=== PATIENT | male | born 1980 | race Two or more races ===

== ENCOUNTER 2019-12-18 00:29 | Emergency (ER) | payer OTHER ==
[~2019-12-18] VITALS: Ht 180.3 cm; Wt 99.8 kg
--- NOTE | 2019-12-18 00:30 | NUR ---
TO ER BED 12 C/O SI WITH PLAN TO RUN INTO TRAFFIC. PT DENIES HI, DENIES ALCOHOL OR DRUG USE. PT CALM AND COOPERATIVE AT THIS TIME. PLACE PT IN HOSPITAL GOWNED, ALL BELONGINGS REMOVED AND PLACED IN A LOCKED HOSPITAL LOCKER, 1:1 SITTER AT BEDSIDE. PENDING ER MD PISANO.
--- NOTE | 2019-12-18 00:30 | NUR ---
PT CAME TO THE ED C/O SI WITH PLAN TO RUN INTO TRAFFIC. DENIES HI, DENIES DRUG USE. PT AAOX4, NO ACUTE DISTRESS NOTED. PT CHANGED INTO GOWN, BELONGINGS PLACED TO LOCKER, PLACED ON SUICIDE PRECAUTIONS. SITTER AT BEDSIDE FOR SAFETY
--- NOTE | 2019-12-18 00:35 | NUR ---
ER MD AT BEDSIDE TO EVAL PT WITH ORDERS RECEIVED. WILL CARRY OUT ORDERS.
--- NOTE | 2019-12-18 00:51 | NUR ---
SWITCH MAKER AT BEDSIDE FOR BLOOD DRAW.
[2019-12-18 00:57] LABS: APPEARANCE,URINE Clear (CLEAR); BILIRUBIN,URINE Negative (NEGATIVE); BLOOD, URINE Negative Ery/uL (NEGATIVE); COLOR,URINE Yellow (YELLOW); KETONES,URINE Negative (NEGATIVE); LEUKOCYTE ESTERASE ,URINE Negative (NEGATIVE); NITRITE, URINE Negative (NEGATIVE); PH,URINE 5.5 (5.0-8.0); PROTEIN,URINE Negative (NEGATIVE); UGLUCOSE Negative (NEGATIVE); UROBILINOGEN,URINE 0.2 EU/dL (0.2)
[2019-12-18 01:03] LABS: BASOPHILS # (AUTO) 0.2 /CMM (0.0-0.2); BASOPHILS % (AUTO) 1.9 % (0.0-2.0); EOSINOPHILS % (AUTO) 4.4 % (0.0-6.0); HEMATOCRIT 40 % (39-51); HEMOGLOBIN 13.5 g/dL (13.5-17.5); LYMPHOCYTES # (AUTO) 2.5 /CMM (0.8-4.8); LYMPHOCYTES % (AUTO) 28.8 % (20.0-44.0); MEAN CORPUSCULAR HGB CONC 34 g/dl (31.0-36.0); MEAN CORPUSCULAR VOLUME 89 fL (80-96); MONOCYTES % (AUTO) 11.2 % (2.0-12.0); NEUTROPHILS # (AUTO) 4.6 /CMM (1.8-8.9); NEUTROPHILS % (AUTO) 53.7 % (43.0-81.0); PLATELET COUNT (AUTO) 328 /CMM (150-450); RED BLOOD CELL COUNT(AUTO) 4.52 MIL/uL (4.5-6.0); WHITE BLOOD COUNT (AUTO) 8.6 K/uL (4.3-11.0)
[2019-12-18 01:28] LABS: CALCIUM, SERUM 8.3 mg/dL (8.5-10.1); CARBON DIOXIDE 27 mmol/L (21-32); CHLORIDE 101 mmol/L (98-107); CREATININE 0.9 mg/dL (0.6-1.3); GLUCOSE 97 mg/dL (74-106); POTASSIUM 3.3 mmol/L (3.5-5.1); SODIUM SERUM 137 mmol/L (136-145); UREA NITROGEN, BLOOD 19 mg/dL (7-18)
[2019-12-18 01:32] LABS: ALANINE AMINOTRANSFERASE 69 U/L (12-78); ALBUMIN 3.6 g/dL (3.4-5.0); ALCOHOL, BLOOD < 3 mg/dL (0-0); ALKALINE PHOSPHATASE 105 U/L (46-116); ASPARTATE AMINOTRANSFERASE 53 U/L (15-37); BILIRUBIN,DIRECT 0.1 mg/dL (0.0-0.2); BILIRUBIN,TOTAL 0.4 mg/dL (0.2-1.0); SALICYLATE 3.3 mg/dL (2.8-20.0); TOTAL PROTEIN, SERUM 6.8 g/dL (6.4-8.2)
--- NOTE | 2019-12-18 01:34 | NUR ---
Patient is resting comfortably in bed with eyes closed. Easily aroused. VSS.
[2019-12-18 01:36] LABS: ACETAMINOPHEN 0 ug/ml (10-30)
--- NOTE | 2019-12-18 02:41 | NUR ---
PT RESTING COMFORTABLY IN BED. VSS. NO ACUTE DISTRESS NOTED.
--- NOTE | 2019-12-18 02:44 | NUR ---
CALLED [facility]
--- NOTE | 2019-12-18 03:55 | NUR ---
SPOKE WITH FIORELLA FROM [facility]. CASE ASSIGNED TO [facility], WILL CALL BACK FOR EVALUATION INFORMATION/ETA.
--- NOTE | 2019-12-18 04:05 | NUR ---
[facility] PER [facility], PENDING PET EVAL
--- NOTE | 2019-12-18 04:43 | NUR ---
PT ASLEEP, NO ACUTE DISTRESS NOTED, RESP EVEN AND UNLABORED. CALL LIGHT WITHIN REACH. WILL CONTINUE TO MONITOR PT CLOSELY. 1:1 SITTER AT BEDSIDE.
--- NOTE | 2019-12-18 07:10 | NUR ---
[facility] FROM [facility] IS ON THE WAY [facility]
--- NOTE | 2019-12-18 07:10 | NUR ---
[facility] ([place]) [phone].
--- NOTE | 2019-12-18 09:13 | NUR ---
domi (psych clinician from [facility]) at bedside for eval
--- NOTE | 2019-12-18 10:23 | NUR ---
TRANSFER INFO: [facility] [address], ACCEPTED BY DR LANE, RN FOR REPORT [phone] EXT [phone], AMBULANCE ETA [phone]
--- NOTE | 2019-12-18 10:36 | NUR ---
Report given to Juan TIMMONS for mallika.
[2019-12-18 11:21] VITALS: BP 135/81
--- NOTE | 2019-12-18 11:22 | NUR ---
Private ambulance came to picke up the patient going to [facility] psych, in no distress. Left in stable condition, denies any pain or chest pain.
== END 2019-12-18 11:22 ==
LOC: ER 00:29
DX: R45.851 Suicidal ideations (principal); F19.10 Other psychoactive substance abuse, uncomplicated; I10 Essential (primary) hypertension; K21.9 Gastro-esophageal reflux disease without esophagitis; F20.9 Schizophrenia, unspecified
CPT/HCPCS: 36415; 80048; 80076; 80305; 80307; 80329; 81001; 85025; 99285; G0480; 81000-TC